=== PATIENT | female | born 1965 | race American Indian/Alaskan Native ===

== ENCOUNTER 2021-02-20 16:23 | Emergency (ER) | payer SELFPAY ==
[2021-02-20 17:13] VITALS: BP 148/105
--- NOTE | 2021-02-20 17:34 | Event Note ---
ED Screening Note ED Screening Note: states he has lightheadedness, nausea, and abd pain for two days no vomiting no diarrhea no fever no fever states he has been sweating PMHx HTN, bipolar no allergies to meds former smoker, quit two years ago no ETOH previous drug use, crack cocaine no PSHx This initial assessment/diagnostic orders/clinical plan/treatment(s) is/are subject to change based on patients health status, clinical progression and re- assessment by fellow clinical providers in the ED. Further treatment and workup at subsequent clinical providers discretion. Patient/guardian urged not to elope from the ED as their condition may be serious if not clinically assessed and managed. Initial orders include: labs, UA, EKG
[2021-02-20] MEDS ORDERED: ACETAMINOPHEN 500 MG TAB PO ONE (18:26)
[2021-02-20] MEDS ORDERED: ONDANSETRON 4 MG/2 ML INJ IV ONE (18:26)
[2021-02-20] MEDS ORDERED: SODIUM CHLORIDE 0.9% 1000 ML 1,000 ML IV ONE (18:26)
[2021-02-20 18:33] LABS: Bilirubin,Urine NEG (Negative); Blood,Urine NEG (Negative); Color,Urine Straw (Yellow); Protein,Urine <15 mg/dL mg/dL (Negative); Urobilinogen,Urine < 2.0 mg/dL (<2.0)
[2021-02-20 18:48] LABS: Alanine Aminotransferase 28 units/L (7-56); Albumin 4.2 g/dL (3.9-5); BUN/Creatinine Ratio 20; Blood Urea Nitrogen 16 mg/dL (7-17); Calcium 9.1 mg/dL (8.4-10.2); Hemolysis Index 5
[2021-02-20 19:22] LABS: Basophils # (Auto) 0.1 K/mm3 (0.0-0.1); Eosinophils # (Auto) 0.1 K/mm3 (0.0-0.4); Eosinophils % (Auto) 1.2 % (0.0-4.3); Hematocrit 46.1 % (30.3-42.9); Lymphocytes # (Auto) 2.5 K/mm3 (1.2-5.4); Lymphocytes % (Auto) 27.4 % (13.4-35.0); Mean Corpuscular HGB Conc 35 % (30-34); Mean Corpuscular Volume 86 fl (79-97); Monocytes # (Auto) 0.6 K/mm3 (0.0-0.8); Monocytes % (Auto) 6.7 % (0.0-7.3); Platelet Count 231 K/mm3 (140-440); Red Blood Count 5.36 M/mm3 (3.65-5.03); Red Cell Distribution Width 13.8 % (13.2-15.2)
--- NOTE | 2021-02-20 20:16 | Emergency Department Report ---
ED General Adult HPI - General Chief complaint: Abdominal Pain Stated complaint: STOMACH/HEADACHE/LIGHT DIZZINESS Time Seen by Provider: 02/20/21 17:32 Source: patient Mode of arrival: Ambulatory Limitations: No Limitations - History of Present Illness Initial comments: Chief complaint: "I feel as if I might pass out." HPI: This is a healthy 55-year-old male with history of hypertension, bipolar disorder who presents with fatigue abdominal pain headache for the past 2 days. He just feels drained. He donated plasma twice over the last week. He feels as if he is going to pass out. He denies any syncope. Faint mild headache. Generalized without abdominal pain. Feels lightheaded Especially upon standing. -: Gradual, days(s) (2 days) Location: head, abdomen Severity scale (0 -10): 10 Quality: aching Consistency: constant Improves with: none Worsens with: none Associated Symptoms: headaches, malaise, other (Fatigue near syncope) - Related Data Allergies Allergy/AdvReac Type Severity Reaction Status Date / Time No Known Allergies Allergy Verified 02/20/21 17:07 ED Review of Systems ROS: Stated complaint: STOMACH/HEADACHE/LIGHT DIZZINESS Other details as noted in HPI Comment: All other systems reviewed and negative Constitutional: denies: chills, fever ENT: denies: throat pain Respiratory: denies: cough, shortness of breath Cardiovascular: denies: chest pain, palpitations Gastrointestinal: abdominal pain. denies: nausea, vomiting Neurological: headache ED Past Medical Hx - Past Medical History Previous Medical History?: Yes Hx Hypertension: Yes Hx Psychiatric Treatment: Yes (Bi-Polar) - Surgical History Past Surgical History?: No - Social History Smoking Status: Former Smoker Substance Use Type: None ED Physical Exam - General Limitations: No Limitations General appearance: alert, in no apparent distress - Head Head exam: Present: atraumatic, normocephalic - Eye Eye exam: Present: normal appearance - ENT ENT exam: Present: mucous membranes moist - Neck Neck exam: Present: normal inspection, full ROM - Respiratory Respiratory exam: Present: normal lung sounds bilaterally. Absent: respiratory distress, wheezes, rales, rhonchi - Cardiovascular Cardiovascular Exam: Present: regular rate, normal rhythm, normal heart sounds. Absent: systolic murmur, diastolic murmur, rubs, gallop - GI/Abdominal GI/Abdominal exam: Present: soft, normal bowel sounds. Absent: distended, tenderness, guarding, rebound - Extremities Exam Extremities exam: Present: normal inspection - Back Exam Back exam: Present: normal inspection - Neurological Exam Neurological exam: Present: alert, oriented X3 - Psychiatric Psychiatric exam: Present: normal affect, normal mood - Skin Skin exam: Present: warm, dry, intact, normal color. Absent: rash ED Course Vital Signs 02/20/21 02/20/21 17:07 18:45 Temperature 98.7 F Pulse Rate 99 H Respiratory 18 18 Rate Blood Pressure 148/105 O2 Sat by Pulse 98 Oximetry ED Medical Decision Making - Lab Data Result diagrams: 02/20/21 17:36 02/20/21 17:36 Laboratory Results - last 24 hr 02/20/21 02/20/21 02/20/21 17:36 17:36 Unknown WBC 9.3 RBC 5.36 H Hgb 16.0 H Hct 46.1 H MCV 86 MCH 30 MCHC 35 H RDW 13.8 Plt Count 231 Lymph % (Auto) 27.4 [place] % (Auto) 6.7 Eos % (Auto) 1.2 Baso % (Auto) 1.0 Lymph # (Auto) 2.5 [place] # (Auto) 0.6 Eos # (Auto) 0.1 Baso # (Auto) 0.1 Seg Neutrophils % 63.7 Seg Neutrophils # 5.9 Sodium 138 Potassium 3.8 Chloride 102.7 Carbon Dioxide 24 Anion Gap 15 BUN 16 Creatinine 0.8 Estimated GFR > 60 BUN/Creatinine Ratio 20 Glucose 97 Calcium 9.1 Magnesium 2.10 Total Bilirubin 0.40 AST 20 ALT 28 Alkaline Phosphatase 72 Total Creatine Kinase 277 H Total Protein 7.3 Albumin 4.2 Albumin/Globulin Ratio 1.4 Urine Color Straw Urine Turbidity Clear Urine pH 5.0 Ur Specific [place] 1.010 Urine Protein <15 mg/dl Urine Glucose (UA) Neg Urine Ketones Neg Urine Blood Neg Urine Nitrite Neg Urine Bilirubin Neg Urine Urobilinogen < 2.0 Ur Leukocyte Esterase Neg Urine WBC (Auto) 1.0 Urine RBC (Auto) 1.0 U Epithel Cells (Auto) < 1.0 - EKG Data -: EKG Interpreted by Ut EKG shows normal: sinus rhythm, axis, intervals, QRS complexes, ST-T waves Rate: normal - EKG Data Interpretation: normal EKG 02/20/21 20:15 EKG obtained 1747 EKG obtained EKG interpreted by me Normal sinus rhythm normal rate normal axis normal intervals no ST elevation no ST-T signs of ischemia normal EKG rate 80 bpm - Medical Decision Making General symptoms due to volume contraction after donating plasma twice within the last week. EKG within normal limits. Elevated hemoglobin hematocrit revealed volume contraction. Chemistry urinalysis unremarkable with exception of trace proteinuria. Patient given IV fluid therapy. Patient encouraged to avoid future plasma donations. He is discharged home. Patient does not have any abdominal tenderness or leukocytosis to suggest peritonitis. I suspect mild dyspepsia. Patient has mild global headache due to dehydration. Critical care attestation.: If time is entered above; I have spent that time in minutes in the direct care of this critically ill patient, excluding procedure time. ED Disposition Clinical Impression: Acute dehydration, Plasma donor Disposition: DC-01 TO HOME OR SELFCARE Is pt being admited?: No Does the pt Need Aspirin: No Condition: Stable Instructions: Abdominal Pain (ED), Dehydration, Adult, [id number] Referrals: SEEMA MUNROE MD [Primary Care Provider] - 3-5 Days
[2021-02-20] MEDS ORDERED: MORPHINE 4 MG/1 ML INJ IV ONE (20:53)
[2021-02-20] MEDS ORDERED: dexAMETHasone 20 MG/5 ML VIAL IV ONE (20:53)
[2021-02-20] MEDS ORDERED: KETOROLAC 30 MG/1 ML INJ IV ONE (20:53)
--- NOTE | 2021-02-22 17:52 | Electrocardiograph Report ---
[facility] Test Date: 2021-02-20 Test Time: 17:47:40 Pat Name: KAMRAN ARREDONDO Department: Room: Gender: F Scales Inspector: [place] : 1965 Requested By: MIGUEL GLEASON Order Number: [id number] Reading MD: Kin Castillo Measurements Intervals [place] Rate: 79 P: 65 KS: 151 QRS: -6 QRSD: 95 T: 52 QT: 379 QTc: 435 Interpretive Statements Sinus rhythm No previous ECG available for comparison Electronically Signed On 02-22-2021 17:51:39 EDT by Kin Castillo
== END 2021-02-20 23:35 | disposition home or self-care (01) ==
LOC: ED 16:23
DX: E86.0 Dehydration (principal); I10 Essential (primary) hypertension; F31.9 Bipolar disorder, unspecified; Z87.891 Personal history of nicotine dependence; Z52.008 Unspecified donor, other blood
CPT/HCPCS: 36415; 80053; 81001; 82550; 83735; 85025; 93005; 96361; 96374; 96375; 99283; J1100; J1885; J2270; J2405; J7030

== ENCOUNTER 2021-07-18 23:05 | Emergency (ER) | payer SELFPAY | END 2021-07-18 23:50 | disposition left against medical advice (07) | LOC: ED 23:05 | DX: R11.0 Nausea (principal); R10.9 Unspecified abdominal pain; R42 Dizziness and giddiness; Z53.21 Procedure and treatment not carried out due to patient leaving prior to being seen by health care provider ==